=== PATIENT | female | born 1930 | race Caucasian/White ===

== ENCOUNTER 2017-03-06 14:25 | Observation (INO) | payer MEDICARE ==
[~2017-03-06 14:25] MED LIST: ACETAMINOPHEN650 M1 PO; ADVIL200 MG PO; ALDACTONE25 M1 PO; ALEVE220 MG; ALLOPURINOL100 MG; ALLOPURINOL300 M1 PO; ALLOPURINOL300 MG; ATENOLOL; ATENOLOL25 MG PO; ATENOLOL50 MG; BISOPROLOL FUMAR5 M1 PO; BYSTOLIC5 MG; CALCIUM W/VIT D1 TA PO; CATAPRES0.1 MG; CATAPRES0.1 MG PO; CITRACAL200 MG; COZAAR100 M1 PO; FOLIC ACID1 MG; FOLIC ACID1 MG PO; FORADIL12 MCG; FUROSEMIDE40 MG; FUROSEMIDE80 MG; INHALER; LASIX; LASIX40 M1 PO; LASIX40 MG PO; LASIX80 MG PO; LISINOPRIL40 MG; LISINOPRIL40 MG PO; METOLAZONE2.5 MG; MIRALAX17 G1 PO; MULTIVITAMIN1 TAB; NORCO 5/325 TAB1 TAB PO; NORVASC; ONE DAILY FOR1 EAC4 PO; OXYGEN; PRINIVIL; PRINIVIL40 MG; SIMVASTATIN10 MG PO; TENORMIN50 MG; TYLENOL EXTRA500 M1 PO; ZOCOR; ZOCOR10 MG; ZOCOR40 M1 PO; [UNRECOGNIZED DRUG - OTHER]; [UNRECOGNIZED DRUG - OTHER]
[2017-03-06] MEDS ORDERED: MIRALAX17 G2 PO (14:33)
[2017-03-06] MEDS ORDERED: TYLENOL EXTRA500 M1 PO (15:17)
[2017-03-06 15:36] LABS: BASO % 0.3 % (0-2); EOS % 1.6 % (0-7); EOSINOPHIL ABSOLUTE COUNT 0.2 tho/cmm (0.0-0.7); HCT-HEMATOCRIT 35.6 % (34.0-49.0); HGB-HEMOGLOBIN 11.1 gm/dl (12.0-15.5); IMMATURE GRANULOCYTES ABSOLUTE 0.03 tho/cmm (0-0.03); IMMATURE GRANULOCYTES PERCENT 0.3 % (0-0.3); LYMPH ABSOLUTE COUNT 1.1 tho/cmm (0.8-4.5); MCH (MEAN CORPUSCULAR HGB) 30.2 pg (28.0-32.0); MCHC MEAN CORPUSCULAR HGB CONC 31.2 % (32.0-36.0); MCV (MEAN CELL VOLUME) 96.7 fl (82.0-96.0); MEAN PLATELET VOLUME 11.6 cmc (9.4-12.4); MONO % 8.2 % (0-12); MONOCYTE ABSOLUTE COUNT 0.9 tho/cmm (0.0-1.2); NEUTROPHIL ABSOLUTE COUNT 8.7 tho/cmm (1.6-8.0); NEUTROPHIL-AUTOMATED 8.7 tho/cmm (1.6-8.0); NEUTROPHILS % 79.6 % (40-80); PLATELET COUNT 182 tho/cmm (150-450); RED BLOOD COUNT 3.68 mil/cmm (4.00-5.20); RED CELL DISTRIBUTION WIDTH 15.4 % (12.4-16.4); WHITE BLOOD COUNT 10.9 tho/cmm (4.0-10.0)
[2017-03-06 15:45] LABS: ANION GAP 13 mmol/L (0-20); BLOOD UREA NITROGEN 35 mg/dl (6-24); C-REACTIVE PROTEIN 5.7 mg/dl (0-0.9); CALCIUM 9.6 mg/dl (8.5-10.5); CARBON DIOXIDE-VENOUS 27 mmol/L (22-32); CHLORIDE 107 mmol/l (96-110); CREATININE 1.19 mg/dl (0.50-1.10); GLUCOSE 106 mg/dL (70-110); POTASSIUM 4.3 mmol/L (3.7-5.1); SODIUM 143 mmol/L (135-145); eGFR VALUE FOR BLACK 49 mL/Min
[2017-03-06 15:51] LABS: URINE APPEARANCE CLEAR; URINE BILIRUBIN NEGATIVE (NEG); URINE BLOOD NEGATIVE (NEG); URINE COLOR YELLOW; URINE GLUCOSE (UA) NEGATIVE (NEG); URINE KETONE NEGATIVE (NEG); URINE LEUKOCYTE ESTERASE NEGATIVE (NEG); URINE NITRITE NEGATIVE (NEG); URINE PROTEIN NEGATIVE (NEG)
[2017-03-07 04:33] LABS: BASO % 0.4 % (0-2); EOS % 2.9 % (0-7); EOSINOPHIL ABSOLUTE COUNT 0.2 tho/cmm (0.0-0.7); HCT-HEMATOCRIT 30.8 % (34.0-49.0); HGB-HEMOGLOBIN 9.5 gm/dl (12.0-15.5); IMMATURE GRANULOCYTES ABSOLUTE 0.01 tho/cmm (0-0.03); IMMATURE GRANULOCYTES PERCENT 0.1 % (0-0.3); LYMPH % 21.2 % (20-45); LYMPH ABSOLUTE COUNT 1.6 tho/cmm (0.8-4.5); MCHC MEAN CORPUSCULAR HGB CONC 30.8 % (32.0-36.0); MCV (MEAN CELL VOLUME) 97.2 fl (82.0-96.0); MEAN PLATELET VOLUME 11.1 cmc (9.4-12.4); MONOCYTE ABSOLUTE COUNT 0.7 tho/cmm (0.0-1.2); NEUTROPHIL ABSOLUTE COUNT 4.9 tho/cmm (1.6-8.0); NEUTROPHIL-AUTOMATED 4.9 tho/cmm (1.6-8.0); NEUTROPHILS % 66.4 % (40-80); PLATELET COUNT 146 tho/cmm (150-450); RED BLOOD COUNT 3.17 mil/cmm (4.00-5.20); RED CELL DISTRIBUTION WIDTH 15.5 % (12.4-16.4); WHITE BLOOD COUNT 7.4 tho/cmm (4.0-10.0)
[2017-03-07 04:48] LABS: ANION GAP 12 mmol/L (0-20); BLOOD UREA NITROGEN 33 mg/dl (6-24); CALCIUM 8.7 mg/dl (8.5-10.5); CARBON DIOXIDE-VENOUS 28 mmol/L (22-32); CHLORIDE 111 mmol/l (96-110); CREATININE 1.28 mg/dl (0.50-1.10); GLUCOSE 96 mg/dL (70-110); POTASSIUM 4.5 mmol/L (3.7-5.1); SODIUM 146 mmol/L (135-145); eGFR VALUE FOR BLACK 44 mL/Min
--- NOTE | 2017-03-07 15:24 | NUR ---
1500-DISCHARGE NOTE-VIRTUAL NURSE-REVIEWED DISCHARGE INSTRUCTIONS WITH PATIENT. STATES HER DAUGHTER WITH NOT BE HERE UNTIL 1700 TO PICK HER UP. TOLD PATIENT WE WOULD REVIEW INFORMATION WITH DAUGHTER ALSO AT THAT TIME. VERBALIZES GOOD UNDERSTANDING OF TEACHING. NO QUESTIONS AT THIS TIME. PATIENT TO HAVE HOME HEALTH. Tian GOLDMAN RN
== END 2017-03-07 17:10 | disposition home health service (06) ==
LOC: EDMED 14:25 → EMR2 18:17 → 5WD 19:48
PROVIDERS: Nurse Practitioner Family; ADMIT Family Medicine
DX: M25.532 Pain in left wrist (principal); M25.552 Pain in left hip; N17.9 Acute kidney failure, unspecified; E86.0 Dehydration; E66.01 Morbid (severe) obesity due to excess calories; W18.30XA Fall on same level, unspecified, initial encounter; I10 Essential (primary) hypertension; G47.33 Obstructive sleep apnea (adult) (pediatric); E78.5 Hyperlipidemia, unspecified; M19.90 Unspecified osteoarthritis, unspecified site; I73.9 Peripheral vascular disease, unspecified; R60.9 Edema, unspecified; Z90.49 Acquired absence of other specified parts of digestive tract; Z98.890 Other specified postprocedural states; Z79.899 Other long term (current) drug therapy
CPT/HCPCS: G0378; G8978-GP-CJ; G8979-GP-CJ; G8980-GP-CJ; G8987-GO-CJ; G8988-GO-CH; G8989-GO-CJ; J1650; J2270; J2405; J7030